=== PATIENT | female | born 1980 | race Caucasian/White ===

== ENCOUNTER 2019-09-07 13:47 | Outpatient (CLI) | payer OTHER, SELFPAY ==
--- NOTE | 2019-09-07 13:55 | ECG_ITS ---
Measurements Intervals Stewart Rate: 63 P: 30 CT: 153 QRS: 13 QRSD: 107 T: 22 QT: 408 QTc: 419 Interpretive Statements SINUS RHYTHM BASELINE ARTIFACT- I, III, AVR, AVL, AVF, V1-V6 NORMAL ECG Electronically Signed On 09-07-2019 14:14:34 [employer] by Gurmeet Whitmore D.O.
[2019-09-07 14:30] LABS: Alanine Aminotransferase 16 U/L (4-35); Alkaline Phosphatase 66 U/L (38-126); Aspartate Amino Transferase 20 U/L (14-36); Bilirubin,Total 0.3 mg/dL (0.2-1.3); Blood Urea Nitrogen 16 mg/dL (7-17); Calcium 8.8 mg/dL (8.4-10.2); Carbon Dioxide 28 mmol/L (22-30); Chloride 99 mmol/L (98-107); Estimated Glomerular Filt Rate > 60; Glucose 97 mg/dL (65-105); Potassium 4.2 mmol/L (3.4-5.0); Sodium 139 mmol/L (137-145)
== END 2019-09-07 13:48 | disposition home or self-care (01) ==
PROVIDERS: PCP Nurse Practitioner Family; Visit Provider Obstetrics & Gynecology
DX: Z01.818 Encounter for other preprocedural examination (principal); N92.0 Excessive and frequent menstruation with regular cycle; I10 Essential (primary) hypertension
CPT/HCPCS: 36415; 80053; 86850; 86900; 86901; 93005

== ENCOUNTER 2019-09-14 00:27 | Day surgery (SDC) | payer OTHER, SELFPAY ==
[2019-09-01 14:33] VITALS: BMI 44.4
[2019-09-14] VITALS (14 sets, daily range): BP systolic 104–146; BP diastolic 31–80; PULSE 46–79; RESP 8–18; TEMP 36.3–37.1; O2SAT 96–100
--- NOTE | 2019-09-14 06:56 | P.PNAN_ITS ---
Anes - Initial Pre Proc Eval Procedure: Operation Date: 09/14/19 07:30 Proposed Procedures p Total Laparoscopic Hysterectomy - Gabriele Verdugo MD Date/Time: 09/14/19 06:56 Surgeon: Gabreile Verdugo MD Pre Op Diagnosis: Irreg bleeding, menorrhaghia, leiyomyoma of uterus Patient Data Age: 39 Gender: F Height: 5 ft 6 in Weight: 124.74 kg Allergies Allergy/AdvReac Type Severity Reaction Status Date / Time Iodinated Contrast Media Allergy CHOKING Verified 09/01/19 14:34 SENSATION, THROAT SWELLING Home Medications Medication Instructions Recorded Confirmed Type duloxetine 30 mg PO DAILY 09/01/19 09/01/19 History lisinopril 20 mg PO DAILY 09/01/19 09/01/19 History omeprazole 20 mg PO DAILY 09/01/19 09/01/19 History Patient hx anesthesia problems: none Family hx anesthesia problems: none [facility] Past Medical History Medical History (Updated 09/14/19 @ 06:56 by Wilman Cameron MD) HTN (hypertension) Morbid obesity Surgical History Surgical History (Updated 09/14/19 @ 06:56 by Wilman Cameron MD) History of tubal ligation Anes - Eval Final PreProcedure Day of Procedure 09/14/19 06:56 Patient weight: morbidly obese Heart: regular rate and rhythm Lungs: clear to auscultation Airway: Mallampati scale class 1 Neurological: alert and oriented Last oral intake: >/= 8 hours ASA classification: III Emergent: no Anesthetic plan: proceed Anesthesia type and monitoring: general ETT and standard monitoring Informed Consent: The patient's anesthetic plan and its attendant risks and b enefits were discussed with the patient/family/POA. Questions were solicited and answers provided to the satisfaction of the patient/family/POA.
[2019-09-14] MEDS: LACTATED RINGERS 1,000 ML 30 ML IV CONT ×2 (07:05→09:37)
[2019-09-14] MEDS: IBUPROFEN IV 800 MG/200 ML 800 MG/200 ML BAG 400 MG IVPB (07:05)
--- NOTE | 2019-09-14 07:13 | WPDHPUPDATE1 ---
History and Physical Update Update Date/Time: 09/14/19 07:13 History and Physical has been reviewed, including an updated exam of the patient. There are NO changes in the patient's condition. Risks, benefits, and alternatives have been discussed and questions answered. Patient agrees to proceed with procedure.
[2019-09-14] MEDS: ceFAZolin 3 GM/D5W 100 ML 100 ML IVPB (07:31)
--- NOTE | 2019-09-14 09:55 | PM.PROC ---
Procedure Note - Detailed Date of procedure: 09/14/19 Pre-op diagnosis: Irreg bleeding, menorrhaghia, leiyomyoma of uterus Myoma Post-op diagnosis: same Procedure performed: Total laparoscopic hysterectomy. Left ovarian cystectomy Description of procedure: The patient was taken to the operating room. She was prepped and draped in the dorsal lithotomy position. A speculum was placed in the vagina. The cervix was grasped with a tenaculum. Stay sutures were placed at 3 and 9:00 a.m. of 0 Vicryl. The stay sutures were brought through the Pepe up. The TORO manipulator was placed in the vagina with a fixed Pepe cup. The cup was then pushed up around the cervix. The sutures were tied to the handle of the TORO manipulator. A 5 mm incision was made on the abdominal skin of the left upper quadrant using a scalpel. A 5 mm trocar was inserted into the intra-abdominal cavity under direct visualization the scope. Pneumoperitoneum was achieved. An 11 mm incision was made in the left lower quadrant of the abdomen with a scalpel. A 11 mm trocar was inserted into the intra-abdominal cavity under direct visualization the scope. A 5 mm periumbilical incision was made. A 5 mm scope was placed into the intra-abdominal cavity under direct visualization of the scope. Left ovarian cystectomy was performed and initially. This was done using sharp and blunt dissection and the LigaSure. A thin cyst capsule was removed x2 on the left side. It was gently cauterized to make hemostatic at the cut surface. The suspensory ligament of the ovary was cauterized and transected with ligature cautery in a bilateral fashion. The fallopian tubes were cauterized and transected in a bilateral fashion with LigaSure cautery. The round ligaments were cauterized and transected in bilateral fashion with LigaSure cautery. The round ligaments were cauterized and transected bilaterally with LigaSure cautery. The broad ligaments were cauterized and transected along the lateral aspects of the uterus down the level of the uterine arteries. A bladder flap was created using sharp and blunt dissection. The ureters were dissected out bilaterally down to the level of the uterine arteries. They could be visualized from the pelvic brim down the uterine arteries. Staying very close to the cervix the parametrium was cauterized transected in a stepwise fashion down to the level of the Pepe cup. The Bladder flap was moved distally over the Pepe cup using sharp and blunt dissection. The impression of the entire cup was visualized around the cervix. An incision was made with unipolar cautery down under the Pepe cup creating a colpotomy incision all the way around the cervix. The uterus tubes and ovaries were taken out through the vagina. A pneumo occluder was placed in the vagina. The vagina was closed with 0 V lock suture in a running fashion. The ureters were identified again and found to be intact to the level of the uterine arteries. The pelvis was irrigated with a copious amount of antibiotic irrigation. The pneumoperitoneum was reduced. The trocars were removed. The skin was closed subcuticular 4 Monocryl covered with Dermabond. The pneumo occluder was removed from the vagina. The vagina was irrigated with Betadine. The patient tolerated the procedure well. She was taken to the recovery room in stable condition. Sponge lap and needle counts were correct x2. Anesthesia: GETA Surgeon: Gabriele Verdugo MD Estimated blood loss (mL): 200 Drains: No Packing: No Pathology: yes Complications: No immediate complications Condition: stable Disposition: PACU Findings: Grossly normal appearing tubes. Small left ovarian cyst and normal appearing right ovary.. Enlarged, boggy uterus with large endometrial fibroid.
[2019-09-14] MEDS: KETOROLAC 30 MG/ML VIAL (*BKC) IV PUSH (13:00)
[2019-09-14] MEDS: ONDANSETRON INJ 4 MG/2 ML VIAL IV PUSH (13:00)
[2019-09-14] MEDS: IBUPROFEN 600 MG TABLET PO (18:57)
[2019-09-15 05:30] VITALS: BP 123/64; PULSE 54; RESP 16; TEMP 36.2; O2SAT 97
--- NOTE | 2019-09-15 08:14 | PM.GYNPNOP ---
SENIOR PENSIONS ADMINISTRATOR - A/P Postoperative Procedures: Procedures Operation Date: 09/14/19 07:30 Actual Procedures Side Surgeon p Total Laparoscopic Hysterectomy Gabriele Verdugo MD POD#1 TLH Postoperative day: 1 Postoperative status: doing well and other (Tollerating Regular Diet) Postoperative plan: routine post-op care and discharge Time Spent With Patient Time: Total time spent is greater than 50% in coordination of care (as documented) at patient's floor/unit and/or counseling patient: Time with patient: 15 - 25 minutes SENIOR PENSIONS ADMINISTRATOR- PN:Subj Post-Op Subjective Date/time seen: 09/15/19 08:14 Subjective: patient reports feeling better, pain is well controlled and patient is tolerating oral intake Exam Const: General: cooperative, healthy appearing, comfortable and no acute distress Resp: Auscultation: no crackles, no rales, no rhonchi and no wheezes Cardio: Rhythm: regular rhythm Heart sounds: no click and no murmurs GI: Inspection: non-distended Auscultation: normal bowel sounds Other: Incisions - CDI Extrem: General: normal to inspection, no pedal edema and no calf tenderness SENIOR PENSIONS ADMINISTRATOR - PN: Obj Data Vital Signs Vital Signs: Vital Signs - 24 hr 09/14/19 09:37 09/14/19 09:54 09/14/19 10:05 Temperature 97.4 F L Pulse Rate 79 46 L 69 Respiratory Rate 9 L 8 L 10 L Blood Pressure 122/80 146/76 H 133/31 L Pulse Oximetry 100 100 100 09/14/19 10:20 09/14/19 10:35 09/14/19 10:45 Temperature 98.2 F Pulse Rate 52 L 52 L 52 L Respiratory Rate 10 L 16 18 Blood Pressure 128/79 131/75 137/74 Pulse Oximetry 99 96 96 09/14/19 11:00 09/14/19 11:30 09/14/19 12:00 Temperature Pulse Rate 54 L 49 L 51 L Respiratory Rate 16 16 16 Blood Pressure 130/67 122/69 126/68 Pulse Oximetry 100 99 98 09/14/19 13:00 09/14/19 14:00 09/14/19 19:00 Temperature 98.7 F 98.6 F Pulse Rate 53 L 56 L 79 Respiratory Rate 16 16 18 Blood Pressure 131/73 115/60 110/64 Pulse Oximetry 99 97 100 09/14/19 22:45 09/15/19 05:30 Temperature 98.5 F 97.1 F L Pulse Rate 67 54 L Respiratory Rate 16 16 Blood Pressure 104/52 L 123/64 Pulse Oximetry 96 97 Intake/Output Intake/Output: Intake & Output 09/12/19 09/13/19 09/14/19 09/15/19 23:59 23:59 23:59 23:59 Intake Total 1100 Output Total 1800 Balance -700 Meds/Results Medications: Active Medications Generic Name Dose Route Start Last Admin Trade Name Freq PRN Reason Stop Dose Admin Hydrocodone Bitart/Acetaminophen 1 tab 09/14/19 10:31 09/14/19 18:59 [place] 5-325 Mg PO 1 tab Q3H PRN Administration Pain Rated 5 or Less Hydrocodone Bitart/Acetaminophen 1 tab 09/14/19 10:31 09/15/19 05:37 [place] 10-325 Mg PO 1 tab Q3H PRN Administration Pain Rated 6 or Greater Duloxetine HCl 30 mg 09/15/19 09:00 Cymbalta PO DAILY [facility] Ibuprofen 600 mg 09/14/19 10:31 09/14/19 18:57 Motrin PO 600 mg Q6H PRN Administration Cramping Ketorolac Tromethamine 30 mg 09/14/19 10:31 09/14/19 13:00 Toradol Inj IV PUSH 09/19/19 10:32 30 mg Q6H PRN Administration Pain Rated 4-6 Lisinopril 20 mg 09/15/19 09:00 Prinivil PO DAILY [facility] Naloxone HCl 0.1 mg 09/14/19 10:31 Narcan IV PUSH Q2M PRN Respiratory rate less than 10 Ondansetron HCl 4 mg 09/14/19 10:31 09/14/19 13:00 Zofran Inj IV PUSH 4 mg Q6H PRN Administration Nausea And Vomiting Pantoprazole Sodium 20 mg 09/15/19 09:00 Protonix PO DAILY [facility]
[2019-09-15] MEDS: lisinopriL 20 MG TABLET PO (08:49)
[2019-09-15] MEDS: IBUPROFEN 600 MG TABLET PO (08:49)
[2019-09-15] MEDS: PANTOPRAZOLE SOD SESQUIHYDRATE 20 MG TAB PO (08:49)
[2019-09-15] MEDS: DULOXETINE HCL 30 MG CAPSULE.DR PO (08:49)
[2019-09-15 08:55] VITALS: BP 116/50; PULSE 56; RESP 18; TEMP 36.6; O2SAT 98
== END 2019-09-15 09:40 | disposition home or self-care (01) ==
LOC: ANHSURGERY 06:36 → ANHOB2 13:10
PROVIDERS: Visit Provider Obstetrics & Gynecology
PROC: 0UT9FZZ Resection of Uterus, Via Natural or Artificial Opening With Percutaneous Endoscopic Assistance (ICD-10-PCS; CPT 58570; principal; 2019-09-14 07:30)
DX: N92.0 Excessive and frequent menstruation with regular cycle (principal); D25.0 Submucous leiomyoma of uterus; N80.0 Endometriosis of uterus; N83.02 Follicular cyst of left ovary; I10 Essential (primary) hypertension; E66.01 Morbid (severe) obesity due to excess calories; Z68.43 Body mass index [BMI] 50.0-59.9, adult
CPT/HCPCS: 58570; 58662; 88300; 88305; 88307; 99199; A9270; J0330; J0690; J1100; J1170; J1741; J1885; J2250; J2405; J2704; J2710; J3010; J7030; J7120